=== PATIENT | female | born 2000 | race Caucasian/White ===

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

== ENCOUNTER 2021-01-24 00:51 | Emergency (ER) | payer OTHER ==
[~2021-01-24] VITALS: Ht 160 cm; Wt 69.9 kg
[2021-01-24 01:27] LABS: PLATELET COUNT 230 K/uL (152-353)
[2021-01-24 01:38] LABS: POTASSIUM 3.8 mmol/L (3.6-5.2)
[2021-01-24 04:40] VITALS: BP 110/72; TEMP 98.7
== END 2021-01-24 04:45 | disposition short-term general hospital (02) ==
LOC: ED 00:51
PROVIDERS: Hospitalist
DX: K35.890 Other acute appendicitis without perforation or gangrene (principal); Z11.52 Encounter for screening for COVID-19
CPT/HCPCS: 36415; 80053; 81000; 81025; 83690; 85027; 87635; 96360; 96361; 96365; 96366; 96375; 99284; J1170; J1885; J1956; J2405; J2543; Q9963; U0003